=== PATIENT | male | born 1965 | race Caucasian/White ===

== ENCOUNTER 2018-03-11 13:14 | Emergency (ER) | payer MEDICARE, OTHER ==
--- NOTE | 2018-03-11 14:25 | XRAY Report ---
Procedure Date: 03/11/2018 Accession Number: [id number] / [id number] Procedure: XR - Chest 2 View X-Ray CPT Code: 32223 FULL RESULT: EXAM: CHEST RADIOGRAPHY EXAM DATE: 03/11/2018 02:16 PM. CLINICAL HISTORY: Cough x several days. COMPARISON: None. TECHNIQUE: 2 views. FINDINGS: Lungs/Pleura: Mild blunting of the right lateral costophrenic angle. Normal lung volumes. No consolidation, vascular congestion, nor pneumothorax. Mediastinum: Heart and mediastinal contours are unremarkable. Other: None. IMPRESSION: Mild blunting right lateral costophrenic angle either due to pleural scarring or tiny effusion. RADIA
--- NOTE | 2018-03-11 14:38 | ED Physician Documentation ---
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 He has now developed a cough and congestion over the last several days and is having some chest tightness as well. He is visiting the area and he is getting ready to go into [place] and he wants to make certain that he does not get sick while he is there. He has had pneumonia previously and he has used an inhaler previously. He does have his inhalers back home in [place] as he was not anticipating getting sick. Review of Systems Constitutional: denies: Fever Eyes: denies: Decreased vision Ears: denies: Ear pain Nose: reports: Congestion Throat: denies: Sore throat Cardiac: reports: Chest pain / pressure. denies: Palpitations, Pedal edema, Calf pain Respiratory: reports: Dyspnea, Cough GI: denies: Abdominal Pain, Nausea, Vomiting : denies: Dysuria, Frequency PD PAST MEDICAL HISTORY - Present Medications Home Medications: Ambulatory Orders Medication Instructions Recorded Confirmed Albuterol Sulf [Ventolin Hfa 1 - 2 puffs INH Q4HR PRN #1 inhaler 03/11/18 Inhaler] Azithromycin [Zithromax] 250 mg PO DAILY #6 tablet 03/11/18 Gabapentin 100 mg 03/11/18 oxyCODONE [Roxicodone] 5 mg 03/11/18 - Allergies Allergies/Adverse Reactions: Allergies Allergy/AdvReac Type Severity Reaction Status Date / Time No Known Drug Allergies Allergy Verified 03/11/18 13:31 PD ED PE NORMAL - Vitals Vital signs reviewed: Yes (diastolic hypertension ) - General General: Alert and oriented X 3, No acute distress, Well developed/nourished - HEENT HEENT: Atraumatic, PERRL, EOMI, Dentition benign, Other (The right TM is inflamed with rounding of the landmarks. The left is clear. ) - Neck Neck: Supple, no meningeal sign, No bony TTP - Cardiac Cardiac: RRR, No murmur - Respiratory Respiratory: No respiratory distress, Clear bilaterally - Abdomen Abdomen: Soft, Non tender - Back Back: No CVA TTP, No spinal TTP - Derm Derm: Normal color, Warm and dry, No rash - Extremities Extremities: No deformity, No edema - Neuro Neuro: Alert and oriented X 3, square cutter 2-12 intact, No motor deficit, No sensory deficit, Normal speech Eye Opening: Spontaneous Motor: Obeys Commands Verbal: Oriented GCS Score: 15 - Psych Psych: Normal mood, Normal affect Results - Vitals Vitals: Vital Signs - 24 hr 03/11/18 13:26 Temperature 36.7 C Heart Rate 89 Respiratory 18 Rate Blood Pressure 123/88 H O2 Saturation 97 Oxygen O2 Source Room air - Rads (name of study) 2 view chest Radiology: Prelim report reviewed (Impression: Mild blunting right lateral costophrenic angle either due to pleural scarring or tiny effusion.), EMP read indepedently, See rad report PD MEDICAL DECISION MAKING - ED course Complexity details: reviewed results, re-evaluated patient, considered differential, d/w patient ED course: 52-year-old male with cough and congestion has otitis on exam he is administered dexamethasone 10 mg orally. Chest x-ray is of without evidence of infiltrate he does have a tiny pleural effusion on the right and he does have evidence of restriction to air movement. He has used an inhaler previously. We will place the patient on some azithromycin as well as provide an inhaler. - Sepsis Event Vital Signs: Vital Signs - 24 hr 03/11/18 13:26 Temperature 36.7 C Heart Rate 89 Respiratory 18 Rate Blood Pressure 123/88 H O2 Saturation 97 Oxygen O2 Source Room air Departure - Departure Disposition: 01 Home, Self Care Clinical Impression: Otitis media Qualifiers: Otitis media type: suppurative Chronicity: acute Laterality: right Recurrence: not specified as recurrent Spontaneous tympanic membrane rupture: without spontaneous rupture Qualified Code(s): H66.001 - Acute suppurative otitis media without spontaneous rupture of ear drum, right ear Condition: Stable Instructions: ED Otitis Media Acute Adult Follow-Up: Your, doctor [Other] Prescriptions: Albuterol Sulf [Ventolin Hfa Inhaler] 1 - 2 puffs INH Q4HR PRN #1 inhaler PRN Reason: Shortness Of Air/Wheezing Azithromycin [Zithromax] 250 mg PO DAILY #6 tablet
[2018-03-11] MEDS: DEXAMETHASONE 10 MG/ML VIAL PO STA (15:03)
[2018-03-11 15:08] VITALS: BP 128/88
== END 2018-03-11 15:07 | disposition home or self-care (01) ==
LOC: ED 13:14
DX: H66.001 Acute suppurative otitis media without spontaneous rupture of ear drum, right ear (principal); Z85.89 Personal history of malignant neoplasm of other organs and systems
CPT/HCPCS: 71046; 99283